=== PATIENT | female | born 1980 | race Caucasian/White ===

== ENCOUNTER 2018-03-08 13:03 | Emergency (ER) | payer OTHER ==
[2018-03-08 13:32] LABS: BILIRUBIN,URINE NEGATIVE (NEGATIVE); GLUCOSE, URINE (UA) NEGATIVE (NEGATIVE); KETONES,URINE (UA) NEGATIVE (NEGATIVE); LEUKOCYTE ESTERASE, URINE NEGATIVE (NEGATIVE); NITRITE,URINE NEGATIVE (NEGATIVE); OCCULT BLOOD,URINE NEGATIVE (NEGATIVE); PH,URINE 7.5 PH (5.0-7.5); PROTEIN,URINE NEGATIVE (NEGATIVE); UROBILINOGEN,URINE 0.2 (NORMAL) E.U./dL (NORMAL)
[2018-03-08] MEDS ORDERED: KETOROLAC 60 MG/2 ML VIAL IVP STA (13:33)
[2018-03-08 13:35] LABS: CLARITY,URINE CLEAR (CLEAR); HCG UR QUAL NEGATIVE
--- NOTE | 2018-03-08 13:35 | ED Physician Documentation ---
PD HPI ABD PAIN - Stated complaint Stated Complaint: ABD PX/POST OP - Chief complaint Chief Complaint: Abd Pain - History obtained from History obtained from: Patient - History of Present Illness Timing - onset: Last night (38-year-old woman who had an open myomectomy for fibroids on January 20 at [facility]. Last menses was on February 19. Since last night she has had gradual onset right lower quadrant pain radiating to the right flank without nausea but with poor appetite. She has chronically abnormal bowel movements from IBS, no urinary complaints and no chills.) Review of Systems Ten Systems: 10 systems reviewed and negative Constitutional: denies: Fever, Chills Cardiac: denies: Chest pain / pressure, Palpitations Respiratory: denies: Dyspnea, Cough GI: reports: Abdominal Pain. 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 - Past Surgical History Past Surgical History: Yes /PIPING DRAFTER: Other - Present Medications Home Medications: Ambulatory Orders Medication Instructions Recorded Confirmed Docusate Sodium [Dss] 250 mg PO 03/08/18 Iron,Carbonyl [Iron Chews] 03/08/18 Meloxicam [Mobic] 7.5 mg PO BIDWM PRN #15 tablet 03/08/18 - Allergies Allergies/Adverse Reactions: Allergies Allergy/AdvReac Type Severity Reaction Status Date / Time Penicillins Allergy Rash Verified 03/08/18 13:16 Sulfa (Sulfonamide Allergy Edema Verified 03/08/18 13:16 Antibiotics) - Social History Does the pt smoke?: No Smoking Status: Never smoker Does the pt drink ETOH?: No Does the pt have substance abuse?: No - Family History Family history: reports: Non contributory PD ED PE NORMAL - Vitals Vital signs reviewed: Yes - General General: Alert and oriented X 3, No acute distress - HEENT HEENT: PERRL, EOMI - Neck Neck: Supple, no meningeal sign, No bony TTP - Cardiac Cardiac: RRR, No murmur - Respiratory Respiratory: No respiratory distress, Clear bilaterally - Abdomen Abdomen: Normal bowel sounds, Soft, Non tender - Back Back: No CVA TTP, No spinal TTP - Derm Derm: Normal color, Warm and dry - Extremities Extremities: No edema, No calf tenderness / cord - Neuro Neuro: Alert and oriented X 3, Normal speech Results - Vitals Vitals: Vital Signs - 24 hr 03/08/18 03/08/18 13:13 14:57 Temperature 36.8 C Heart Rate 76 68 Respiratory 18 Rate Blood Pressure 132/93 H 128/72 O2 Saturation 99 98 Oxygen O2 Source Room air - Labs Labs: Laboratory Tests 03/08/18 03/08/18 03/08/18 13:20 13:20 13:30 WBC 9.1 RBC 4.29 Hgb 12.7 Hct 37.2 MCV 86.7 MCH 29.5 MCHC 34.1 RDW 14.6 Plt Count 300 MPV 7.6 L Neut # (Auto) 7.1 H Lymph # (Auto) 1.4 L [place] # (Auto) 0.4 Eos # (Auto) 0.1 Baso # (Auto) 0.0 Absolute Nucleated RBC 0.00 Nucleated RBC % 0.0 Sodium Potassium Chloride Carbon Dioxide Anion Gap BUN Creatinine Estimated GFR (MDRD) Glucose Calcium Total Bilirubin AST ALT Alkaline Phosphatase Total Protein Albumin Globulin Albumin/Globulin Ratio Lipase Urine Color YELLOW Urine Clarity CLEAR Urine pH 7.5 Ur Specific [place] 1.015 1.015 Urine Protein NEGATIVE Urine Glucose (UA) NEGATIVE Urine Ketones NEGATIVE Urine Occult Blood NEGATIVE Urine Nitrite NEGATIVE Urine Bilirubin NEGATIVE Urine Urobilinogen 0.2 (NORMAL) Ur Leukocyte Esterase NEGATIVE Ur Microscopic Review NOT INDICATED Urine Culture Comments NOT INDICATED Urine HCG, Qual NEGATIVE 03/08/18 13:30 WBC RBC Hgb Hct MCV MCH MCHC RDW Plt Count MPV Neut # (Auto) Lymph # (Auto) [place] # (Auto) Eos # (Auto) Baso # (Auto) Absolute Nucleated RBC Nucleated RBC % Sodium 135 Potassium 3.6 Chloride 101 Carbon Dioxide 24 Anion Gap 10.0 BUN 11 Creatinine 0.6 Estimated GFR (MDRD) 112 Glucose 107 H Calcium 9.3 Total Bilirubin 0.6 AST 22 ALT 23 Alkaline Phosphatase 89 Total Protein 8.0 Albumin 4.5 Globulin 3.5 Albumin/Globulin Ratio 1.3 Lipase 29 Urine Color Urine Clarity Urine pH Ur Specific [place] Urine Protein Urine Glucose (UA) Urine Ketones Urine Occult Blood Urine Nitrite Urine Bilirubin Urine Urobilinogen Ur Leukocyte Esterase Ur Microscopic Review Urine Culture Comments Urine HCG, Qual - Rads (name of study) Ct A/P Radiology: EMP read contemporaneously (Normal appendix, 4 cm right ovarian cyst , fibroid uterus.) PD MEDICAL DECISION MAKING - ED course ED course: She has had gradual onset right lower quadrant pain radiating the back, differential includes appendicitis, renal colic, ovarian cyst. Demonstrates the latter. She is comfortable after Toradol IV here. - Sepsis Event Vital Signs: Vital Signs - 24 hr 03/08/18 03/08/18 13:13 14:57 Temperature 36.8 C Heart Rate 76 68 Respiratory 18 Rate Blood Pressure 132/93 H 128/72 O2 Saturation 99 98 Oxygen O2 Source Room air Departure - Departure Disposition: 01 Home, Self Care Clinical Impression: Abdominal pain Qualifiers: Abdominal location: right lower quadrant Qualified Code(s): R10.31 - Right lower quadrant pain Cyst of ovary Qualifiers: Laterality: right Qualified Code(s): N83.201 - Unspecified ovarian cyst, right side Condition: Stable Record reviewed to determine appropriate education?: Yes Instructions: ED Cyst Ovarian Prescriptions: Meloxicam [Mobic] 7.5 mg PO BIDWM PRN #15 tablet PRN Reason: Pain Comments: You have a 4 cm ovarian cyst, you should follow-up with your fruit inspector within a few weeks for this for further evaluation and testing. Return if worsening or if pain is uncontrolled.
[2018-03-08 13:46] LABS: BASOPHILS % (AUTO) 0.5 %; EOSINOPHILS # (AUTO) 0.1 10^3/uL (0.0-0.7); EOSINOPHILS % (AUTO) 1.3 %; HGB - HEMOGLOBIN 12.7 g/dL (12.0-16.0); LYMPHOCYTES # (AUTO) 1.4 10^3/uL (1.5-3.5); LYMPHOCYTES % (AUTO) 15.7 %; MEAN CORPUSCULAR HEMOGLOBIN 29.5 pg (27.0-31.0); MEAN CORPUSCULAR HGB CONC 34.1 g/dL (32.0-36.0); MEAN CORPUSCULAR VOLUME 86.7 fL (81.0-99.0); MEAN PLATELET VOLUME 7.6 fL (7.9-10.8); MONOCYTES # (AUTO) 0.4 10^3/uL (0.0-1.0); MONOCYTES % (AUTO) 4.1 %; NEUTROPHILS # (AUTO) 7.1 10^3/uL (1.5-6.6); NEUTROPHILS % (AUTO) 78.4 %; PLT - PLATELET COUNT 300 10^3/uL (130-450); RED BLOOD COUNT 4.29 10^6/uL (4.20-5.40); RED CELL DISTRIBUTION WIDTH 14.6 % (12.0-15.0); WHITE BLOOD COUNT 9.1 x10^3/uL (4.8-10.8)
[2018-03-08 13:59] LABS: ALBUMIN 4.5 g/dL (3.2-5.5); ALBUMIN/GLOBULIN RATIO 1.3 (1.0-2.2); BILIRUBIN,TOTAL 0.6 mg/dL (0.2-1.0); CALCIUM 9.3 mg/dL (8.5-10.3); CREATININE 0.6 mg/dL (0.4-1.0)
[2018-03-08] MEDS ORDERED: IOPAMIDOL-300 100 ML VIAL ONE (14:22)
[2018-03-08] MEDS ORDERED: IOPAMIDOL-300 100 ML VIAL IVP ONE (14:42)
[2018-03-08 14:57] VITALS: BP 128/72
--- NOTE | 2018-03-08 15:08 | CT Report ---
Procedure Date: 03/08/2018 Accession Number: [id number] / [id number] Procedure: CT - Abdomen/Pelvis W/ CPT Code: FULL RESULT: EXAM: CT ABDOMEN AND PELVIS EXAM DATE: 03/08/2018 02:50 PM. CLINICAL HISTORY: IV only, RLQ pain. COMPARISONS: None. TECHNIQUE: Routine helical CT imaging was performed through the abdomen and pelvis. IV contrast: 100 cc Isovue-300 IV. Enteric contrast: No. Reconstructions: Coronal and sagittal. In accordance with CT protocol optimization, one or more of the following dose reduction techniques were utilized for this exam: automated exposure control, adjustment of mA and/or KV based on patient size, or use of iterative reconstructive technique. FINDINGS: Lung Bases: Unremarkable. Liver: Normal. No masses. Gallbladder/Bile Ducts: Unremarkable. Spleen: Normal. Pancreas: Normal. Adrenal Glands: Normal. Kidneys: Normal. No masses or hydronephrosis. Peritoneal Cavity/Bowel: Normal. No free fluid, free air or adenopathy. No masses or acute inflammatory process. The appendix is well visualized and normal. Pelvic Organs: There is generalized fat stranding in the low pelvis. There is a small volume of free fluid within the posterior cul-de-sac of the pelvis. There are multiple hypodense uterine masses. There are hypodense structures in the right adnexa consistent with right ovarian cysts or follicles largest measuring 4.0 x 2.4 x 3.1 cm. Left ovary is not well seen. Urinary bladder is empty. Vasculature: No aneurysms or other significant abnormality. Bones: No significant abnormality. Other: None. IMPRESSION: 1. Small volume of intraperitoneal free fluid located within the low pelvis. 2. Right ovary appears mildly enlarged and there is a dominant cyst measuring approximately 4 cm in diameter. 3. The appendix is visualized and appears normal. 4. Multiple uterine fibroids. 5. No other CT abnormality. RADIA
== END 2018-03-08 15:23 | disposition home or self-care (01) ==
LOC: ED 13:03
DX: R10.31 Right lower quadrant pain (principal); N83.201 Unspecified ovarian cyst, right side; Z98.890 Other specified postprocedural states
CPT/HCPCS: 36415; 74177; 80053; 81003; 81025; 83690; 85025; 96374; 99283; 99284; Q9967; 81001; 87086

== ENCOUNTER 2018-06-03 11:29 | Outpatient (CLI) | payer OTHER ==
[2018-06-03 17:58] LABS: BASOPHILS % (AUTO) 0.5 %; EOSINOPHILS # (AUTO) 0.1 10^3/uL (0.0-0.7); HGB - HEMOGLOBIN 13.5 g/dL (12.0-16.0); LYMPHOCYTES # (AUTO) 1.5 10^3/uL (1.5-3.5); LYMPHOCYTES % (AUTO) 23.8 %; MEAN CORPUSCULAR HEMOGLOBIN 29.5 pg (27.0-31.0); MEAN CORPUSCULAR HGB CONC 34.2 g/dL (32.0-36.0); MEAN CORPUSCULAR VOLUME 86.3 fL (81.0-99.0); MEAN PLATELET VOLUME 8.4 fL (7.9-10.8); MONOCYTES # (AUTO) 0.3 10^3/uL (0.0-1.0); MONOCYTES % (AUTO) 4.9 %; NEUTROPHILS # (AUTO) 4.3 10^3/uL (1.5-6.6); NEUTROPHILS % (AUTO) 68.8 %; PLT - PLATELET COUNT 273 10^3/uL (130-450); RED BLOOD COUNT 4.57 10^6/uL (4.20-5.40); RED CELL DISTRIBUTION WIDTH 13.9 % (12.0-15.0); WHITE BLOOD COUNT 6.2 x10^3/uL (4.8-10.8)
[2018-06-03 18:30] LABS: % IRON SATURATION 19 % (20-50); IRON 79 ug/dL (28-170); TOTAL IRON BINDING CAPACITY 421 ug/dL (250-450); TRANSFERRIN 301 mg/dL (192-382)
== END 2018-06-03 11:30 | disposition home or self-care (01) ==
LOC: LAB.F 11:29
PROVIDERS: ATTEND Nurse Practitioner Family
DX: D64.9 Anemia, unspecified (principal); N92.6 Irregular menstruation, unspecified
CPT/HCPCS: 36415; 82306; 82728; 83540; 84144; 84466; 85025

== ENCOUNTER 2021-03-09 18:25 | Outpatient (CLI) | payer OTHER | END 2021-03-09 18:26 | disposition critical access hospital (66) | LOC: EMS 18:25 | DX: R51.9 Headache, unspecified (principal) | CPT/HCPCS: A0425; A0427 ==

== ENCOUNTER 2021-03-09 18:54 | Emergency (ER) | payer OTHER ==
--- NOTE | 2021-03-09 19:20 | ED Physician Documentation ---
History of Present Illness - Stated complaint Stated Complaint: SALAZAR - Chief complaint Chief Complaint: Neuro - History obtained from History obtained from: Patient - Additonal information Additional information: 41-year-old woman, previously healthy presents with severe sudden onset headache after power lifting at 5 PM today. Patient states that it started in the right posterior head and neck, radiating to the frontal area, aching, severe, constant, 10 out of 10, better with 500 mg of Tylenol, associated with nausea and lightheadedness. Patient also stated that she had a headache yesterday but not as bad. She does have a history of migraines but this is different. denies fever, weakness, or other neuro deficit. she did have an eyelid droop after a similar episode of headaceh with powerlifting in the past that resolved on its own. 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 - Past Surgical History Past Surgical History: Yes /FIRST AID NURSE: Other - Present Medications Home Medications: Ambulatory Orders Medication Instructions Recorded Confirmed No Known Home Medications 03/09/21 03/09/21 - Allergies Allergies/Adverse Reactions: Allergies Allergy/AdvReac Type Severity Reaction Status Date / Time Penicillins Allergy Rash Verified 03/09/21 18:59 Sulfa (Sulfonamide Allergy Edema Verified 03/09/21 18:59 Antibiotics) - Social History Does the pt smoke?: No Smoking Status: Never smoker Does the pt drink ETOH?: No Does the pt have substance abuse?: No PD ED PE NORMAL - Vitals Vital signs reviewed: Yes - General General: Alert and oriented X 3, No acute distress, Well developed/nourished - HEENT HEENT: Atraumatic, PERRL, EOMI, Moist mucous membranes, Pharynx benign - Neck Neck: Supple, no meningeal sign - Cardiac Cardiac: RRR - Respiratory Respiratory: No respiratory distress, Clear bilaterally - Abdomen Abdomen: Non tender, Non distended - Back Back: No spinal TTP - Derm Derm: Normal color, Warm and dry - Extremities Extremities: No deformity - Neuro Neuro: Alert and oriented X 3, field operations coordinator 2-12 intact, No motor deficit, No sensory deficit, Normal speech, Other (normal cerebellar testing and strength) - Psych Psych: Normal mood Results - Vitals Vitals: Vital Signs - 24 hr 03/09/21 03/09/21 03/09/21 18:59 19:32 20:31 Temperature 36.2 C L Heart Rate 69 68 70 Respiratory 20 15 16 Rate Blood Pressure 142/117 H 138/84 H 138/80 H O2 Saturation 99 98 98 03/09/21 21:10 Temperature Heart Rate 77 Respiratory 16 Rate Blood Pressure 126/80 O2 Saturation Oxygen O2 Source Room air - Labs Labs: Laboratory Tests 03/09/21 03/09/21 19:40 19:40 WBC 9.9 RBC 4.14 L Hgb 12.4 Hct 36.6 L MCV 88.4 MCH 30.0 MCHC 33.9 RDW 12.1 Plt Count 237 MPV 9.6 Neut # (Auto) 7.8 H Lymph # (Auto) 1.4 L [place] # (Auto) 0.5 Eos # (Auto) 0.1 Baso # (Auto) 0.0 Absolute Nucleated RBC 0.00 Nucleated RBC % 0.0 Sodium 137 Potassium 3.6 Chloride 102 Carbon Dioxide 23 Anion Gap 12.0 BUN 17 Creatinine 0.8 Estimated GFR (MDRD) 79 L Glucose 108 H Calcium 9.1 Total Bilirubin 0.5 AST 20 ALT 20 Alkaline Phosphatase 84 Total Protein 7.3 Albumin 4.4 Globulin 2.9 Albumin/Globulin Ratio 1.5 Lipase 32 PD MEDICAL DECISION MAKING - ED course ED course: 41-year-old woman presents with severe sudden onset headache, CT angio negative. Note that she initially agreed to medications to treat her symptoms but now declines since she is and concerned about effects. Headache has improved almost to the point of resolution. Since this is within 6 hours of symptom onset I have low suspicion for subarachnoid hemorrhage at this time. Return precautions given. Patient will f/u with primary doctor this week. Departure - Departure Disposition: 01 Home, Self Care Clinical Impression: Headache Condition: Good Instructions: ED Headache Tension Comments: You are seen in the emergency department for headache. Your CT scan did not show any bleeding in the brain. Please return to the emergency department if you have any new or worsening symptoms or other concerns. Follow-up with your primary doctor this week.
[2021-03-09] MEDS ORDERED: IOPAMIDOL-300 100 ML VIAL ONE (19:22)
[2021-03-09] MEDS: SODIUM CHLORIDE 0.9% 1,000 ML IV STA (19:32)
[2021-03-09] MEDS: diphenhydrAMINE 25 MG CAPSULE PO STA (19:45)
[2021-03-09] MEDS: METOCLOPRAMIDE 10 MG/2 ML VIAL IVP STA (19:45)
[2021-03-09 19:49] LABS: BASOPHILS % (AUTO) 0.4 %; EOSINOPHILS # (AUTO) 0.1 10^3/uL (0.0-0.7); EOSINOPHILS % (AUTO) 0.8 %; HCT - HEMATOCRIT 36.6 % (37.0-47.0); HGB - HEMOGLOBIN 12.4 g/dL (12.0-16.0); LYMPHOCYTES # (AUTO) 1.4 10^3/uL (1.5-3.5); LYMPHOCYTES % (AUTO) 14.1 %; MEAN CORPUSCULAR HGB CONC 33.9 g/dL (32.0-36.0); MEAN CORPUSCULAR VOLUME 88.4 fL (81.0-99.0); MEAN PLATELET VOLUME 9.6 fL (7.9-10.8); MONOCYTES # (AUTO) 0.5 10^3/uL (0.0-1.0); MONOCYTES % (AUTO) 5.4 %; NEUTROPHILS # (AUTO) 7.8 10^3/uL (1.5-6.6); NEUTROPHILS % (AUTO) 78.9 %; PLT - PLATELET COUNT 237 10^3/uL (130-450); RED BLOOD COUNT 4.14 10^6/uL (4.20-5.40); RED CELL DISTRIBUTION WIDTH 12.1 % (12.0-15.0); WHITE BLOOD COUNT 9.9 x10^3/uL (4.8-10.8)
[2021-03-09 19:57] LABS: ALBUMIN 4.4 g/dL (3.2-5.5); ALBUMIN/GLOBULIN RATIO 1.5 (1.0-2.2); BILIRUBIN,TOTAL 0.5 mg/dL (0.2-1.0); CALCIUM 9.1 mg/dL (8.5-10.3); CREATININE 0.8 mg/dL (0.4-1.0); POTASSIUM 3.6 mmol/L (3.5-5.0); TOTAL PROTEIN 7.3 g/dL (6.7-8.2)
[2021-03-09] MEDS: IOPAMIDOL-300 100 ML VIAL IVP ONE (20:30)
--- NOTE | 2021-03-09 21:02 | CT Report ---
PROCEDURE: ANGIO HEAD W/WO INDICATIONS: worst headache of life CONTRAST: IV CONTRAST: Isovue 300 ml: 100 PO CONTRAST: *NO PO CONTRAST TECHNIQUE: Precontrast 4.5 mm thick angled axial sections acquired from the foramen magnum to the vertex. Afte r the administration of intravenous contrast, 1 mm thick sections acquired through the [place] is. Postcontrast 4.5 mm thick sections then re-acquired from the foramen magnum to the vertex. 3-di mensional vrbctkv-nfvlttrtm-hcewayviub (MIP) and/or volume rendering reformats were acquired of the c entral intracranial vasculature. For radiation dose reduction, the following was used: automated ex posure control, adjustment of mA and/or kV according to patient size. COMPARISON: None FINDINGS: Image quality: Excellent. Anterior circulation: Intracranial internal carotid arteries are normal in size and flow. The right A1 segment is hypoplastic, however the anterior communicating artery is well seen and the paired A2 segments demonstrates symmetric perfusion. The flow within the middle cerebral arteries is normal an d symmetric. No aneurysms are seen. Posterior circulation: Visualized portions of the vertebral arteries demonstrate normal caliber, and join to form a normal appearing basilar artery. Flow within the posterior cerebral arteries is norm al and symmetric. No aneurysms are seen. CSF spaces: Ventricles are normal in size and shape. Basal cisterns are patent. No extra-axial flu id collections. Brain: No midline shift. No intracranial bleeds or masses. Serrano-white matter interface appears int act. Skull and face: Calvarium and facial bones appear intact, without suspicious lesions. Sinuses: Visualized sinuses and mastoids are clear. IMPRESSION: 1. No CT evidence of acute intracranial process. 2. Hypoplastic A1 segment is a common normal variant. 3. No vascular stenosis, aneurysm, or occlusion. Reviewed by: Amy Gordon MD on 03/09/2021 9:01 PM PDT Approved by: Amy Gordon MD on 03/09/2021 9:01 PM PDT Station ID: [id number]
[2021-03-09 21:11] VITALS: BP 126/80
== END 2021-03-09 21:42 | disposition home or self-care (01) ==
LOC: EDUNIT# → ED 18:54
DX: R51.9 Headache, unspecified (principal)
CPT/HCPCS: 36415; 70496; 80053; 83690; 85025; 96360; 96361; 99284; Q9967

== ENCOUNTER 2023-11-26 17:33 | Emergency (ER) | payer OTHER ==
[2023-11-26 18:11] VITALS: BP 146/92; O2SAT 99
--- NOTE | 2023-11-26 18:27 | ED Physician Documentation ---
PD HPI HEAD INJURY - Stated complaint Stated Complaint: HIT HEAD - Chief complaint Chief Complaint: Trauma Hd/Nk - History obtained from History obtained from: Patient - Additional information Additional information: 5 days ago she stood up into the edge of a cabinet and hit her head. There is no loss of consciousness. She had a headache on the day and has again today but not in between. No nausea or vomiting. No light sensitivity. She feels like there is an indent where she hit her head which worries her. 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 : None HEENT: None Psych: None Musculoskeletal: None Derm: None - Past Surgical History Past Surgical History: Yes General: Other /TUBER OPERATOR: Other - Present Medications Home Medications: Ambulatory Orders Medication Instructions Recorded Confirmed Losartan [Cozaar] 50 mg PO DAILY 11/26/23 - Allergies Allergies/Adverse Reactions: Allergies Allergy/AdvReac Type Severity Reaction Status Date / Time Penicillins Allergy Rash Verified 11/26/23 18:08 Sulfa (Sulfonamide Allergy Edema Verified 11/26/23 18:08 Antibiotics) - Social History Does the pt smoke?: No Smoking Status: Never smoker Does the pt drink ETOH?: No Does the pt have substance abuse?: No - Immunizations Immunizations are current?: No - POLST Patient has POLST: No PD ED PE NORMAL - Vitals Vital signs reviewed: Yes - General General: Alert and oriented X 3, No acute distress - HEENT HEENT: PERRL, EOMI, Other (To the left of midline there is a small divot in her skull, but there is a symmetric 1 on the other side so presume it represents old suture. It is not significantly tender.) - Neuro Neuro: Alert and oriented X 3, transformation manager 2-12 intact, No motor deficit, No sensory deficit, Normal speech Eye Opening: Spontaneous Motor: Obeys Commands Verbal: Oriented GCS Score: 15 - Psych Psych: Normal mood, Normal affect Results - Vitals Vitals: Vital Signs - 24 hr 11/26/23 17:59 Temperature 36.7 C Heart Rate 73 Respiratory 17 Rate Blood Pressure 146/92 H O2 Saturation 99 Oxygen O2 Source Room air PD Medical Decision Making - ED course ED course: She is 5 days out from a head injury, well-appearing with normal exam. I offered CT scanning but discussed with her I think it is low yield and she was reassured. Departure - Departure Disposition: 01 Home, Self Care Clinical Impression: Head injury Condition: Good Record reviewed to determine appropriate education?: Yes Instructions: ED Head Injury Closed Comments: As discussed, the thing you are feeling is I think probably an old suture line from when you were a baby. Given the time course you can be reassured that your head injury is benign. Return if worse though.
== END 2023-11-26 18:32 | disposition home or self-care (01) ==
LOC: ED 17:33
DX: S09.90XA Unspecified injury of head, initial encounter (principal); W22.09XA Striking against other stationary object, initial encounter; Y93.89 Activity, other specified
CPT/HCPCS: 99281; 99283